=== PATIENT | female | born 1970 | race African-American/Black ===

== ENCOUNTER 2023-10-19 16:04 | Emergency (ER) | payer OTHER ==
[~2023-10-19] VITALS: Ht 175.3 cm; Wt 99.0 kg
[2023-10-19 16:28] VITALS: TEMP 102.3; O2SAT 95
[2023-10-19] MEDS ORDERED: KETOROLAC 30MG/ML VIAL IV STA (16:28)
[2023-10-19] MEDS ORDERED: SODIUM CHLORIDE 0.9% 1,000 ML IV ONE ×2 (16:30→16:45)
[2023-10-19] MEDS ORDERED: CEFTRIAXONE 2GM/50ML (ADDEASE) 50 ML IV ONE (16:45)
[2023-10-19] MEDS ORDERED: SULFAMETHOXAZOLE/TRIMETHOPRIM 800/160MG TABLET PO ONE (16:45)
[2023-10-19] MEDS ORDERED: ONDANSETRON HCL 4MG/2ML INJ IV NR (16:45)
[2023-10-19] MEDS ORDERED: KETOROLAC 30MG/ML VIAL IV NR (18:15)
[2023-10-19] MEDS ORDERED: SULFAMETHOXAZOLE/TRIMETHOPRIM 800/160MG TABLET PO NR (18:15)
[2023-10-19 18:21] LABS: HEMATOCRIT. 45.8 % (36.0-48.0); HEMOGLOBIN. 15.2 g/dL (12.0-16.0); MEAN CORPUSCULAR HGB CONC 33.3 g/dL (31.0-37.0); MEAN CORPUSCULAR VOLUME 87.1 fL (81.0-99.0); MEAN PLATELET VOLUME 9.1 fl (7.4-10.4); PLATELET 268 x1000/uL (130-400); RED BLOOD CELL COUNT 5.25 mill/uL (4.2-5.4); RED CELL DISTRIBUTION WIDTH 15.8 % (11.6-14.6); WHITE BLOOD COUNT 17.4 x1000/uL (4.5-11.0)
[2023-10-19 18:24] LABS: DIFFERENTIAL COMMENT 1
[2023-10-19 18:35] LABS: ALANINE AMINOTRANSFERASE 16 IU/L (10-49); ALBUMIN 4.7 g/dL (3.2-4.8); ASPARTATE AMINOTRANSFERASE 19 IU/L (<34); BILIRUBIN TOTAL 1.1 mg/dL (0.1-1.0); CALCIUM 9.5 mg/dL (8.7-10.4); CARBON DIOXIDE 26 mEq/L (21-32); CHLORIDE 101 mEq/L (98-107); GLUCOSE 136 mg/dL (70-105); POTASSIUM 3.6 mEq/L (3.5-5.1); SODIUM 134 mEq/L (136-145); UREA NITROGEN BLOOD 9 mg/dL (9-23)
[2023-10-19 18:44] LABS: HCG SCREEN NEGATIVE
[2023-10-19 18:56] LABS: ANISOCYTOSIS 1+; PLATELET ESTIMATE NORMAL
[2023-10-19 19:09] LABS: COLOR URINE YELLOW (YELLOW)
[2023-10-19 19:10] LABS: CLARITY URINE CLOUDY (CLEAR); GLUCOSE URINE NEGATIVE (NEGATIVE); KETONES URINE 3+ (NEGATIVE); PROTEIN URINE 1+ (NEGATIVE); SPECIFIC GRAVITY URINE 1.025 (1.005-1.030)
[2023-10-19 19:11] LABS: LEUKOCYTE ESTERASE URINE NEGATIVE (NEGATIVE); NITRITE URINE NEGATIVE (NEGATIVE); OCCULT BLOOD URINE TRACE (NEGATIVE)
[2023-10-19 19:12] LABS: BACTERIA URINE 2+; RBC URINE 0-2 /hpf (0-2); SQUAMOUS EPITHELIAL CELL URINE 2+ /lpf (RARE/1+); WBC URINE 0-2 /hpf (0-2)
[2023-10-19] MEDS ORDERED: SULF1TAB48 MT (20:16)
[2023-10-19] MEDS ORDERED: HYDR-4001 MT (20:16)
[2023-10-19 20:47] VITALS: BP 149/86; PULSE 98; RESP 20
== END 2023-10-19 20:51 | disposition home or self-care (01) ==
LOC: ER 16:04
DX: R11.0 Nausea (principal); M79.10 Myalgia, unspecified site; M54.50 Low back pain, unspecified
CPT/HCPCS: 80053; 81003; 84703; 83605; 83690; 85025; 36415; 96374; 96375; 99291; J1885; J2405; J7030; Z7610 ×3